=== PATIENT | female | born 1990 | race Caucasian/White ===

== ENCOUNTER 2021-05-24 22:41 | Emergency (ER) | payer OTHER ==
[~2021-05-24] VITALS: Ht 162.6 cm; Wt 81.6 kg
--- NOTE | 2021-05-25 01:00 | NUR ---
pt came in c/o abd pain, nausea ,vomiting for days.pt is a/a/o x4,placed on monitor .vss.
[2021-05-25] MEDS ORDERED: ACETAMINOPHEN 325 MG TABLET ONE (01:24)
[2021-05-25] MEDS ORDERED: ACETAMINOPHEN 325 MG TABLET PO ONE (01:30)
--- NOTE | 2021-05-25 02:09 | NUR ---
Patient discharged to home in stable condition. RX,Written and verbal after care instructions given. Patient verbalizes understanding of instruction.IV removed. Catheter intact and site benign. Pressure and 4x4 applied to site. No bleeding noted. Addendum: 05/25/21 at 0346 by NIRAJ Patient discharged to home in stable condition. Written and verbal after care instructions given. Patient verbalizes understanding of instruction.
[2021-05-25 02:28] LABS: CALCIUM, SERUM 8.3 mg/dL (8.5-10.1); CREATININE 0.6 mg/dL (0.6-1.3); POTASSIUM 3.8 mmol/L (3.5-5.1)
[2021-05-25 02:33] LABS: BASOPHILS % (AUTO) 0.5 % (0.0-2.0); EOSINOPHILS % (AUTO) 0.4 % (0.0-6.0); HEMATOCRIT 36 % (33-45); HEMOGLOBIN 12.1 g/dL (11.5-14.8); LYMPHOCYTES # (AUTO) 2.7 K/uL (0.8-4.8); LYMPHOCYTES % (AUTO) 38.1 % (20.0-44.0); MEAN CORPUSCULAR HGB CONC 33 g/dl (31.0-36.0); MEAN CORPUSCULAR VOLUME 85 fL (82-100); MONOCYTES # (AUTO) 0.5 K/uL (0.1-1.30); MONOCYTES % (AUTO) 7.4 % (2.0-12.0); NEUTROPHILS # (AUTO) 3.8 K/uL (1.8-8.9); NEUTROPHILS % (AUTO) 53.6 % (43.0-81.0); PLATELET COUNT (AUTO) 193 K/uL (150-450); RED BLOOD CELL COUNT(AUTO) 4.26 MIL/uL (4.0-5.2); WHITE BLOOD COUNT (AUTO) 7.1 K/uL (4.3-11.0)
[2021-05-25 02:34] LABS: ALBUMIN 3.9 g/dL (3.4-5.0); BILIRUBIN,DIRECT 0.1 mg/dL (0.0-0.2); BILIRUBIN,TOTAL 0.2 mg/dL (0.2-1.0)
[2021-05-25 03:19] LABS: BILIRUBIN,URINE NEGATIVE (NEGATIVE); COLOR,URINE YELLOW (YELLOW); LEUKOCYTE ESTERASE ,URINE NEGATIVE (NEGATIVE); NITRITE, URINE NEGATIVE (NEGATIVE); PROTEIN,URINE NEGATIVE (NEGATIVE); UGLUCOSE NEGATIVE (NEGATIVE); UROBILINOGEN,URINE 0.2 EU/dL (0.2)
[2021-05-25 03:42] VITALS: BP 112/83
[2021-05-25 07:22] LABS: BACTERIA,URINE Many /HPF (None Seen); RBC,URINE 0-2 /HPF (0-2); SQUAMOUS EPITHELIAL CELL,UR Few /HPF (None Seen)
[2021-05-25 09:32] LABS: LYMPHOCYTES % (MANUAL) 45 % (16-48); MONOCYTES % (MANUAL) 4 % (0-11.0); NEUTROPHILS % (MANUAL) 51 (42-76)
== END 2021-05-25 02:09 | disposition home or self-care (01) ==
LOC: ER 22:46
DX: U07.1 COVID-19 (principal); R51.9 Headache, unspecified; R10.84 Generalized abdominal pain
CPT/HCPCS: 36415; 71045; 80048; 80076; 81001; 83690; 84703; 85007; 85025; 87086; 87426; 99284; C9803; U0003